=== PATIENT | male | born 1985 | race Caucasian/White ===

== ENCOUNTER → 2019-09-19 | Emergency (ER) | payer MEDICAID ==
[~2019-09-19] VITALS: Ht 188 cm; Wt 104.5 kg
[~2019-09-19] MED LIST: HYDR-4383 PO; cloNIDine 0.1 mg tablet PO ONE; ondansetron 4mg rapidly disintigrating tab PO ONE
[2019-09-19 23:33] VITALS: BP 129/76
== END ==
LOC: ER 23:01
DX: Z02.89 Encounter for other administrative examinations (principal); R05 Cough; R11.0 Nausea; F31.9 Bipolar disorder, unspecified
CPT/HCPCS: 71045; 99283